=== PATIENT | female | born 1990 | race Hispanic/Latino ===

== ENCOUNTER 2017-07-08 18:11 | Emergency (ER) | payer BC ==
[2017-07-08 18:23] VITALS: BP 122/69; PULSE 91; RESP 16; TEMP 98.2; O2SAT 100
--- NOTE | 2017-07-08 19:30 | ED PDOC ---
HPI: General Adult Time Seen by Provider: 07/08/17 18:47 Chief Complaint (Nursing): Female Genitourinary History Per: Patient Additional Complaint(s): Pt. states for the past 4 days she's had vaginal spotting with pelvic cramping. She was seen by her OBGYN, Dr. Sanz, and she had and US done and blood work. States her BHCG on Thursday was ~4000. Today bleeding and cramping worsened. Reports that she's had to use 4 pads today. . Denies abdominal pain, N/V/D, fever, back pain. Past Medical History Reviewed: Historical Data, Nursing Documentation, Vital Signs Vital Signs: Last Vital Signs Temp 98.2 F 07/08/17 18:18 Pulse 91 H 07/08/17 18:18 Resp 16 07/08/17 18:18 BP 122/69 07/08/17 18:18 Pulse Ox 100 07/08/17 18:18 - Family History Family History: States: No Known Family Hx - Allergies Allergies/Adverse Reactions: Allergies Allergy/AdvReac Type Severity Reaction Status Date / Time No Known Allergies Allergy Verified 07/08/17 18:18 Review of Systems ROS Statement: Except As Marked, All Systems Reviewed And Found Negative Genitourinary Female: Positive for: Vaginal Bleeding, Pelvic Pain Physical Exam - Physical Exam Appears: Positive for: Well, Non-toxic, No Acute Distress Skin: Positive for: Normal Color, Warm. Negative for: Rash Eye Exam: Positive for: Normal appearance Cardiovascular/Chest: Positive for: Regular Rate, Rhythm Respiratory: Positive for: CNT, Normal Breath Sounds Gastrointestinal/Abdominal: Positive for: Normal Exam, Soft. Negative for: Tenderness (including pelvis) Back: Positive for: Normal Inspection. Negative for: L CVA Tenderness, R CVA Tenderness Neurologic/Psych: Positive for: Alert, Oriented - ECG O2 Sat by Pulse Oximetry: 100 - Progress ED Course And Treament: Labs ordered. OB TVUS ordered. Disposition - Clinical Impression Clinical Impression: Vaginal bleeding - Patient ED Disposition Is Patient to be Admitted: Transfer of Care (Signed out to MADINA Vuong pending labs and US) - Disposition Disposition Time: 20:00 Condition: STABLE
[2017-07-08 19:46] LABS: BASO # 0.1 K/uL (0.0-0.2); BASO % 0.6 % (0.0-2.0); EOS # 0.4 K/uL (0.0-0.7); EOS % 2.5 % (0.0-4.0); HEMOGLOBIN 13.3 g/dL (12.0-16.0); LYMPH # 3.6 K/uL (1.0-4.3); LYMPH % 23.2 % (20.0-40.0); MEAN CELL VOLUME 86.4 fl (81.0-99.0); MEAN CORPUSCULAR HEMOGLOBIN 28.4 pg (27.0-31.0); MEAN CORPUSCULAR HGB CONC 32.9 g/dL (33.0-37.0); MEAN PLATELET VOLUME 7.7 fl (7.2-11.7); MONO % 6.4 % (0.0-10.0); NEUT # 10.5 K/uL (1.8-7.0); NEUT % 67.3 % (50.0-75.0); NRBC % 0.1 % (0.0-0.0); RBC 4.68 Mil/uL (3.80-5.20); RED CELL DISTRIBUTION WIDTH 13.5 % (11.5-14.5); WHITE BLOOD COUNT 15.7 K/uL (4.8-10.8)
[2017-07-08 19:53] LABS: ALB/GLOB RATIO 1.2 (1.0-2.1); ALBUMIN 4.3 g/dL (3.5-5.0); ALT/SGPT 69 U/L (9-52); AST/SGOT 40 U/L (14-36); BLOOD UREA NITROGEN 12 mg/dl (7-17); GFR AFRICAN-AMERICAN > 60; GFR NON-AFRICAN AMERICAN > 60
[2017-07-08 20:14] LABS: SQUAMOUS EPITHIAL 1 /hpf (0-5); URINE BACTERIA RARE (<OCC); URINE BILIRUBIN NEGATIVE (NEGATIVE); URINE BLOOD LARGE (NEGATIVE); URINE CLARITY CLOUDY (Clear); URINE COLOR YELLOW (YELLOW); URINE GLUCOSE (UA) NEG (Normal); URINE LEUKOCYTE ESTERASE NEG Leu/uL (Negative); URINE NITRATE NEGATIVE (NEGATIVE); URINE PROTEIN 100 mg/dL (NEGATIVE); URINE UROBILINOGEN 0.2-1.0 mg/dL (0.2-1.0)
--- NOTE | 2017-07-08 22:39 | ED PDOC ---
- Laboratory Results Result Diagrams: 07/08/17 19:20 07/08/17 19:20 - ECG O2 Sat by Pulse Oximetry: 100 - Progress ED Course And Treament: US REPORT: 1. No test result is available. No intrauterine gestational sac is identified. There is a small to moderate amount of heterogeneous material in the lower endometrial cavity and endocervical canal. In the setting of a positive test, differential diagnosis favors spontaneous with residual hemorrhagic debris and possible retained products of conception. Differential diagnosis would also include an occult ectopic or an intrauterine that is too early to visualize and concurrent hemorrhagic debris in the lower uterine segment and cervical canal. In the setting of a negative test, differential diagnosis favors hemorrhagic debris of uncertain etiology (e.g., secondary to an occult endometrial polyp). 2. No other evident acute abnormality. Thank you for allowing us to participate in the care of your patient. Dictated and Authenticated by: Ilana Michel MD type B pos pateint to see floors buffer tomorrow 9:45 Disposition - Clinical Impression Clinical Impression: Vaginal bleeding, Miscarriage - POA Present On Arrival: None - Disposition Disposition: Routine/Home Disposition Time: 00:25 Condition: STABLE Instructions: Spontaneous Miscarriage (ED) Forms: [employer] ([place])
--- NOTE | 2017-07-09 13:52 | US ---
HISTORY: pelvic pain, vaginal bleeding. LMP 05/14/2017. COMPARISON: None available. TECHNIQUE: Transvaginal only. Real -time technique with 2D, duplex and color Doppler FINDINGS: UTERUS: Measures 4.7 x 4.2 x 6.8 cm. Normal in size and appearance. No fibroid or other mass lesion seen. ENDOMETRIUM: Measures 7.8 mm in diameter. The more thickened irregular endometrium in the lower uterine segment and endocervical canal measuring 9.5 mm. Cystic material, fluid and debris consistent with clinical presentation. CERVIX: No cervical abnormality identified. RIGHT OVARY: Measures 2.7 x 3.3 cm. No solid mass. Normal flow. LEFT OVARY: Measures 2.4 x 2.4 cm. No solid mass. Normal flow. FREE FLUID: No significant free fluid noted. OTHER FINDINGS: None. IMPRESSION: Thickened endometrium, of debris and material presumed to be hemorrhagic products noted in the lower endometrial canal and cervix. Unremarkable adnexa.
== END 2017-07-09 00:39 | disposition home or self-care (01) ==
LOC: H.ER 18:11
DX: O03.9 Complete or unspecified spontaneous abortion without complication (principal)